=== PATIENT | female | born 1935 | race Caucasian/White ===

== ENCOUNTER → 2020-02-07 | Outpatient (CLI) | payer MEDICARE, BC ==
[~2020-02-07] MED LIST: ACCUPRIL40MGTAB; ALEVE 220MG220 MG PO; ASPIRIN E.C. 8181 MG PO; CALCIUM600 M2 PO; CELEXA10 MG PO; CENTRUM SILVER1 CTB; COLACE 100100 MG/CAP PO; COMPLETE SENIOR1 TA1 PO; FLONASEALLERGY NS; GLUCOPHAGE500 MG/TAB PO; MEDROL 4MG DOSPA4 MG PO; NORCO 325 MG-51 TAB PO; PRINIVIL40 MG PO; PROAIR HFA0.09 MG/AC IH; SYNTHROID0.125 MG/T PO; TOPROL XL 25MG25 MG PO
== END ==
LOC: ZCOL.LAB 19:00
DX: L02.416 Cutaneous abscess of left lower limb (principal)

== ENCOUNTER 2022-05-16 09:47 | Inpatient (IN) | payer MEDICARE, BC ==
[~2022-05-16] VITALS: Ht 149.9 cm; Wt 116.6 kg
[2022-05-16] VITALS (13 sets, daily range): BP systolic 99–130; BP diastolic 46–97; PULSE 98–130; TEMP 97.6–99.6
[2022-05-16 10:41] LABS: COLLECTION METHOD CATHETER
[2022-05-16 10:52] LABS: URINE APPEARANCE Clear (CLEAR/HAZY); URINE BLOOD TRACE-INTACT (NEGATIVE); URINE COLOR Yellow (YELLOW); URINE GLUCOSE Negative (NEGATIVE); URINE KETONE TRACE (NEGATIVE); URINE NITRATE Negative (NEGATIVE); URINE PROTEIN(semi-quant) 2+ (NEGATIVE); URINE UROBILINOGEN 0.2 E.U/dL (0.2-1.0)
[2022-05-16 10:53] LABS: SQUAMOUS EPITHELIAL 0-2 /hpf (0-10); URINE BACTERIA None Seen /hpf (NONE SEEN)
[2022-05-16 10:59] LABS: MEAN CELL VOLUME 84 fl (80.0-100.0); MEAN CORPUSCULAR HEMOGLOBIN 27 pg (27-31); MEAN CORPUSCULAR HGB CONC 33 g/dl (33.0-37.0); PLATELET COUNT 330 K/mm3 (130-400); REDCELL DISTRIBUTION WIDTH-CV 18.5 % (11.5-14.5)
[2022-05-16 11:01] LABS: RED BLOOD COUNT 5.88 M/mm3 (4.10-5.30)
[2022-05-16 11:02] LABS: HEMOGLOBIN 16.1 g/dl (12.5-16.0)
[2022-05-16 11:03] LABS: HEMATOCRIT 49.4 % (37.0-47.0)
[2022-05-16 11:20] LABS: BAND 4 % (0-10); BASOPHIL 1 % (0-2); LYMPHOCYTE 5 % (20.0-51.0); NEUTROPHILS 78 % (42.0-75.2)
[2022-05-16 11:21] LABS: PLATELET ESTIMATE NORMAL (NORMAL)
[2022-05-16 11:22] LABS: POLYCHROMASIA 1+
[2022-05-16 11:27] LABS: ALBUMIN 3.5 gm/dL (3.4-4.8); ANION GAP 14 mmol/L (7-16); BILIRUBIN,TOTAL 3.3 mg/dL (0.2-1.2); BLOOD UREA NITROGEN 16 mg/dL (10-20); CALCIUM 9.8 mg/dL (8.4-10.2); CARBON DIOXIDE 24 mmol/L (23-31); CHLORIDE 99 mmol/L (98-107); CREATININE, serum 0.97 mg/dL (0.57-1.11); GLUCOSE 93 mg/dL (70-99); SODIUM 137 mmol/L (136-145)
[2022-05-16 11:33] LABS: TOTAL PROTEIN 8.9 gm/dL (6.2-8.1)
[2022-05-16 11:34] LABS: ALANINE AMINOTRANSFERASE 66 U/L (0-55); AST,SGOT 189 U/L (5-34)
[2022-05-16 11:35] LABS: ALKALINE PHOSPHATASE 117 U/L (40-150)
[2022-05-16 11:38] LABS: CREATINE KINASE 1408 U/L (29-168)
[2022-05-16 11:41] LABS: TROPONIN-I 0.047 ng/mL (0.00-0.033)
[2022-05-16 12:13] LABS: TSH w REFLEX 1.028 uIU/mL (0.350-4.940)
[2022-05-16 12:43] LABS: BILIRUBIN,TOTAL 2.9 mg/dL (0.2-1.2); CALCIUM 9.2 mg/dL (8.4-10.2); CREATININE, serum 0.71 mg/dL (0.57-1.11); POTASSIUM 3.7 mmol/L (3.5-4.5); TOTAL PROTEIN 6.4 gm/dL (6.2-8.1)
[2022-05-16 12:52] LABS: TROPONIN-I 0.04 ng/mL (0.00-0.033)
--- NOTE | 2022-05-16 15:37 | NUR ---
Pt. to the floor from ER. Pt. is A&OX3, assessment complete. INT to rt. hand and rt. ac. Pt. denies pain at this time.
--- NOTE | 2022-05-16 16:00 | NUR ---
Pt. has several skin wounds to BLE. RLE- scaling, and weeping, mid calf down and including the rt. foot. redness and edema noted. Rt. heew with a 4 cm fissure, area is open and draining. Rt. 1st through 3rd toes with healing wounds. rt. bottom ball area also with a cracked area that is scabbed. Lt. warner with a [id number] scabbed area. top of lt. foot with open blister. lt. 2nd and 3rd toes with healing wounds. lt. heel with cracked area that is scabbed.
[2022-05-16] MEDS ORDERED: CYMBALTA 30MG30 MG PO (16:01)
--- NOTE | 2022-05-16 18:00 | NUR ---
Cardizem Gtt started at this time. per orders. see chart for vitals.
--- NOTE | 2022-05-16 20:55 | NUR ---
SHIFT REPORT FROM RUPA BRANCH. PATIENT IN BED ON ROOM ENTRY. ALERT BUT CONFUSED. WORD SALAD NOTED. HS MEDS PER EMAR. POTASSIUM PER PROTOCOL. PUREWICK IN PLACE BUT WAS LEAKING, LINEN CHANGE COMPLETED. DENIES PAIN AT THIS TIME. BLE CELLULITIS IS WEEPING AND SCABBY AND RED. INTERDRY TO PANIS EXCORIATION. DENIES ADDITIONAL NEEDS. CALL LIGHT IN REACH.
[2022-05-17] VITALS (7 sets, daily range): BP systolic 100–154; BP diastolic 76–134; PULSE 87–115; TEMP 97.4–99.1
--- NOTE | 2022-05-17 02:19 | NUR ---
PATIENT HAD MOMENT OF INCREASED CONFUSION AND WAS ATTEMPTING TO GET OUT OF BED. PATIENT STOOD AT BEDSIDE AND WAS REDIRECTED BACK TO BED AND SITTING. PATIENT HAS BEEN INCONTINENT, PUREWICK IN PLACE. IV TO R HAND WAS PULLED OUT AND RESTARTED ON FIRST ATTEMPT 20 G TO L WRIST. RLE HAS OPEN AREAS THAT ARE NOW BLEEDING, LEFT OPEN TO AIR.
[2022-05-17 06:47] LABS: HEMATOCRIT 43.6 % (37.0-47.0); MEAN CELL VOLUME 85 fl (80.0-100.0); MEAN CORPUSCULAR HEMOGLOBIN 27 pg (27-31); MEAN CORPUSCULAR HGB CONC 32 g/dl (33.0-37.0); MEAN PLATELET VOLUME 9.9 fl (7.4-10.4); PLATELET COUNT 280 K/mm3 (130-400); RED BLOOD COUNT 5.12 M/mm3 (4.10-5.30)
[2022-05-17 06:51] LABS: HEMOGLOBIN 13.9 g/dl (12.5-16.0)
[2022-05-17 07:03] LABS: ALBUMIN 2.8 gm/dL (3.4-4.8); CALCIUM 8.9 mg/dL (8.4-10.2); CREATININE, serum 0.8 mg/dL (0.57-1.11); MAGNESIUM 1.6 mg/dL (1.6-2.6); POTASSIUM 3.9 mmol/L (3.5-4.5)
[2022-05-17 07:49] LABS: ANISOCYTOSIS 1+; BAND 1 % (0-10); HYPOCHROMIA 2+; LYMPHOCYTE 16 % (20.0-51.0); NEUTROPHILS 73 % (42.0-75.2)
[2022-05-17 07:50] LABS: PLATELET ESTIMATE NORMAL (NORMAL); TOXIC GRANULATION PRESENT
--- NOTE | 2022-05-17 10:00 | NUR ---
Pt. in bed. PT here at this time. Assisted pt. to the chair with 2 assist, walker and gait belt. Ortho here also to evaluated BLE. RLE with crusty, weeping, red area that goes whole circumfrence of lower calf. Rt. 1st through 3rd toes with healing wounds, areas scabbed. Rt. heel with fissure that is open and draining. Lt. warner with [id number] scabbed area. LT. top of foot. blister open, lateral foot blister closed. lt. 1st through 3nd toes with heeling wounds. Lt. heel with heeling crack. Pt. denies pain to BLE. Dressings applied per Shannon. PA recommendations. Pt. yaa further needs.
--- NOTE | 2022-05-17 15:40 | NUR ---
SW completed intake with son Steve Andrews [phone] who lives in [place]. SW informed that the patient was a little confused. Patient lives alone in [facility], utilizes a walker and a cane. Is independent with ADL's, but son provides she could utilize assistance, no HH agency utilized at this time. PCP is Dr. Cole. Son states at this time patient does not have anyone specifically appointed as DPOA/HC. Son states that mother has most recently been able to hear very well and doesn't understand things. Son provides that he and patient will be discussing dc plan as he observes she would benefit from LTC. PT recommended IPR on this day. SW will continue to follow. DC plan: IPR vs SNF vs LTC
--- NOTE | 2022-05-17 16:38 | NUR ---
SW reviewed PT recommendation of IPR. SW called IPR staff to inform of referral. SW will continue to follow.
--- NOTE | 2022-05-17 21:47 | NUR ---
2030 PTS DRESSING TO RT LEG WITH DRAINAGE, RN CHANGED DRESSING AND REWRAPPED LEG, BETADINE PLACED ON SCABBING ON FIRST 3 TOES ON RIGHT FOOT. PT TOLERATED DRESSING CHANGE WELL NO NEW REQUESTS AT THIS TIME
--- NOTE | 2022-05-18 01:42 | NUR ---
Patient care, medication administration and nursing documentation occurred during a Daylight Savings Time Change.
[2022-05-18 03:28] VITALS: BP 134/39; PULSE 82; TEMP 97.4
--- NOTE | 2022-05-18 06:14 | NUR ---
PT HAD AN UNEVENTFUL NIGHT. PT WAS ABLE TO AMBULATE WITH X1 ASSISTANCE WITH THIS RN TO THE RESTROOM AT THE BEGINNING OF THE SHIFT. PT AMBULATED WELL BUT KEPT GETTING SIDE TRACKED WHILE TALKING TO TRANSFER DID TAKE A WHILE. RN BRUSHED PTS HAIR SHE WAS DEVELOPING MATTING AT THE BACK OF HER HEAD. PTS DRESSING CHANGED ON R LEG THE DRESSING WAS SATURATED. 0610 PT KATHY PAD CHANGED, PT WAS READJUSTED WITH LEGS ELEVATED, DENIES ANY COMPLAINTS OF PAIN WITH NO NEW REQUESTSS AT THIS TIME .
[2022-05-18 06:53] LABS: BASO # 0.1 K/mm3 (0.0-0.2); BASO % 0.8 % (0.0-2.0); EOS # 0.3 K/mm3 (0.0-0.7); EOS % 2.3 % (0.0-4.0); GRAN # 7.6 K/mm3 (1.4-6.5); GRAN % 68.6 % (42.2-75.2); HEMATOCRIT 43.9 % (37.0-47.0); LYMPH # 1.7 K/mm3 (1.2-3.4); LYMPH % 15.3 % (20.0-51.0); MEAN CELL VOLUME 86 fl (80.0-100.0); MEAN CORPUSCULAR HEMOGLOBIN 27 pg (27-31); MEAN CORPUSCULAR HGB CONC 32 g/dl (33.0-37.0); MEAN PLATELET VOLUME 10.1 fl (7.4-10.4); MONO # 1.4 K/mm3 (0.1-0.6); MONO % 12.4 % (1.7-9.3); PLATELET COUNT 229 K/mm3 (130-400); RED BLOOD COUNT 5.12 M/mm3 (4.10-5.30); REDCELL DISTRIBUTION WIDTH-CV 18.6 % (11.5-14.5)
[2022-05-18 07:11] LABS: ALBUMIN 2.6 gm/dL (3.4-4.8); CALCIUM 8.6 mg/dL (8.4-10.2); CREATININE, serum 0.71 mg/dL (0.57-1.11); MAGNESIUM 1.8 mg/dL (1.6-2.6); PHOSPHOROUS 2.1 mg/dL (2.3-4.7); POTASSIUM 3.9 mmol/L (3.5-4.5)
[2022-05-18 08:03] VITALS: BP 141/84; PULSE 86; TEMP 97.5
--- NOTE | 2022-05-18 10:00 | NUR ---
Pt. sitting up in chair. Pt. is A&OX3, assessment complete. INT to rt. ac and lt. hand patent. Pt. reports pain to rt. lower back and hip area at a 4. Pt. denies further needs.
[2022-05-18 12:15] VITALS: BP 129/65; PULSE 96; TEMP 97.9
--- NOTE | 2022-05-18 14:34 | NUR ---
SW spoke with son about DC plans with Dr. Fuchs in the room. Pt would like a referral to [facility] and with AL in the future there. KYRIE made DOPA-HC for the pt and son. Pt fully understood and agreed. KYRIE made copies for the pt and placed a copy in the chart. Son would like information on medicaid. KYRIE faxed a referral to [facility] via medical printer 2:38 pm. No other needs at this time.
[2022-05-18 16:09] VITALS: BP 144/53; PULSE 85; TEMP 97.4
[2022-05-18 20:03] VITALS: BP 150/91; PULSE 77; TEMP 98.3
[2022-05-18 23:38] VITALS: BP 154/91; PULSE 82; TEMP 98.3
--- NOTE | 2022-05-19 01:53 | NUR ---
0005 PTS DRESSING TO R LEG CHANGED DUE TO SATURATION. PT TOLERATED DRESSING CHANGE WELL. PT CURRENTLY RESTING IN BED NO NEW REQUETS AT THIS TIME
[2022-05-19 03:39] VITALS: BP 150/86; PULSE 94; TEMP 98.8
[2022-05-19 07:17] LABS: BASO # 0.1 K/mm3 (0.0-0.2); BASO % 0.8 % (0.0-2.0); EOS # 0.3 K/mm3 (0.0-0.7); EOS % 2.6 % (0.0-4.0); GRAN # 7.8 K/mm3 (1.4-6.5); LYMPH # 1.8 K/mm3 (1.2-3.4); LYMPH % 16.2 % (20.0-51.0); MEAN CELL VOLUME 88 fl (80.0-100.0); MEAN CORPUSCULAR HEMOGLOBIN 27 pg (27-31); MEAN CORPUSCULAR HGB CONC 31 g/dl (33.0-37.0); MEAN PLATELET VOLUME 10.2 fl (7.4-10.4); MONO # 1.2 K/mm3 (0.1-0.6); MONO % 10.8 % (1.7-9.3); PLATELET COUNT 276 K/mm3 (130-400); RED BLOOD COUNT 5.47 M/mm3 (4.10-5.30); REDCELL DISTRIBUTION WIDTH-CV 18.8 % (11.5-14.5)
[2022-05-19 07:51] LABS: ALBUMIN 2.8 gm/dL (3.4-4.8); CALCIUM 8.5 mg/dL (8.4-10.2); CREATININE, serum 0.71 mg/dL (0.57-1.11); MAGNESIUM 1.8 mg/dL (1.6-2.6); PHOSPHOROUS 2.8 mg/dL (2.3-4.7); POTASSIUM 4.3 mmol/L (3.5-4.5)
--- NOTE | 2022-05-19 07:56 | NUR ---
Received shift report from the night nurseAllie RN
[2022-05-19 08:08] VITALS: BP 110/54; PULSE 64; TEMP 98.6
--- NOTE | 2022-05-19 11:12 | NUR ---
Patient sitting up in a recliner next to bed. Patient alert and oriented. Noted drainage from bilateral foot. Kerlix roll dressing to right leg has some bloody drainage to the area. Dressing changed and applied vaseline gauze, telfa, 4x4 , kerlix roll and apply daron wrap to bilateral extremities. Patient tolerated the procedure well. Call jimenez place within reach.
[2022-05-19 12:11] VITALS: BP 148/82; PULSE 80; TEMP 97.8
--- NOTE | 2022-05-19 16:16 | NUR ---
Chief Analytics Officer spoke with Tina, [facility] Director who continues to follow referral, however advised patient may be better fit for SNF if accepted. Meliza at [facility] declined referral. SW met with patient to discuss other referrals. Patient does not want [facility] in [place] or [facility]. Patient agreeable to have referrals sent to [facility] and [facility] in [place]. SW contacted both facilities and gave referral. SW contacted patient's son, Steve and left message.
--- NOTE | 2022-05-19 16:17 | NUR ---
Patient off the unit for CT scan.
[2022-05-19 16:41] VITALS: BP 141/90; PULSE 86; TEMP 97.6
--- NOTE | 2022-05-19 18:55 | NUR ---
Patient sitting up in bed eating dinner. Patient denies pain at this time. Bilateral dressing dry and intact.
[2022-05-19 19:50] VITALS: BP 152/82; PULSE 81; TEMP 98.1
--- NOTE | 2022-05-19 22:44 | NUR ---
SHIFT REPORT FROM BRITNEY BRANCH. PATIENT IN BED ON ROOM ENTRY. DROWSY AND PARTIALLY ORIENTED. HS MEDS PER EMAR. DENIES PAIN WHEN ASKED. BLE DRESSED AND MILAGROS WRAPPED. PUREWICK IN PLACE AND CLEAR YELLOW URINE OUT. DENIES ADDITIONAL NEEDS. CALL LIGHT IN REACH.
[2022-05-19 23:31] VITALS: BP 152/83; PULSE 82; TEMP 97.8
[2022-05-20 03:52] VITALS: BP 172/104; PULSE 80; TEMP 97.8
[2022-05-20 06:57] LABS: BASO # 0.1 K/mm3 (0.0-0.2); BASO % 1.1 % (0.0-2.0); EOS # 0.2 K/mm3 (0.0-0.7); EOS % 2.1 % (0.0-4.0); GRAN % 67.3 % (42.2-75.2); HEMATOCRIT 51.5 % (37.0-47.0); HEMOGLOBIN 16.6 g/dl (12.5-16.0); LYMPH # 1.7 K/mm3 (1.2-3.4); LYMPH % 16.6 % (20.0-51.0); MEAN CELL VOLUME 86 fl (80.0-100.0); MEAN CORPUSCULAR HEMOGLOBIN 28 pg (27-31); MEAN CORPUSCULAR HGB CONC 32 g/dl (33.0-37.0); MEAN PLATELET VOLUME 10.4 fl (7.4-10.4); MONO # 1.2 K/mm3 (0.1-0.6); MONO % 11.8 % (1.7-9.3); PLATELET COUNT 329 K/mm3 (130-400); REDCELL DISTRIBUTION WIDTH-CV 19.7 % (11.5-14.5)
--- NOTE | 2022-05-20 07:05 | NUR ---
Shift report received from the night nurseArcelia RN
[2022-05-20 08:09] LABS: ALBUMIN 3.1 gm/dL (3.4-4.8); CREATININE, serum 0.72 mg/dL (0.57-1.11); MAGNESIUM 1.9 mg/dL (1.6-2.6); PHOSPHOROUS 2.8 mg/dL (2.3-4.7); POTASSIUM 5.1 mmol/L (3.5-4.5)
[2022-05-20 08:10] VITALS: BP 159/93; PULSE 90; TEMP 97.4
--- NOTE | 2022-05-20 10:32 | NUR ---
Patient resting in a recliner alert and oriented. Wound on right heel, cracked , great oe scabbed and 2nd and 3rd toe scabbed. Noted drainage on dressing on bilateral lower extremity. Patient denies pain at this time. Tele monitor intact. Call jimenez within reach.
[2022-05-20 11:58] VITALS: BP 137/98; PULSE 87; TEMP 97.7
[2022-05-20] MEDS ORDERED: ROCEPHIN 2GM VIAL21 IJ (14:28)
[2022-05-20] MEDS ORDERED: DOXYCYCLINE 10100 MG PO (14:29)
[2022-05-20] MEDS ORDERED: LOPRESSOR 550 MG/TAB PO (14:30)
--- NOTE | 2022-05-20 15:03 | NUR ---
Hot Bread Baker spoke with Hospitalist who gave final antibiotic recs. KYRIE provided recs to Osmel at [facility] who advised they can accept. KYRIE met with patient and son, Steve who are agreeable with discharge to [facility]. SW was notified by Osmel later in the afternoon that they can accept today. SW met with patient and reviewed IM form and patient advised she mostly understood, however would like SW to review it with her son, Steve who went to run some errands. KYRIE called Steve and reviewed IM form. Steve verbalized understanding and gave SW permission to sign on his behalf. KYRIE placed form in chart and provided copy to patient. KYRIE faxed discharge orders to Osmel at [facility]. Transport time set for 1530 and provided to patient's son, Steve. KYRIE consulted with [employer] Counselor who met with patient and Steve prior to her discharge. Discharge Plan: [facility] SNF
--- NOTE | 2022-05-20 16:37 | NUR ---
Patient discharged to [facility]. INT d/c all belongings and paperwrok given to family member to the facility. Report given to nurse Gayle at the facility.
== END 2022-05-20 16:00 | DRG 872 ==
LOC: COL.ER 09:47 → SURG 11:49
PROVIDERS: Emergency Medicine; ADMIT Internal Medicine
DX: A41.9 Sepsis, unspecified organism (principal); I48.20 Chronic atrial fibrillation, unspecified; L03.116 Cellulitis of left lower limb; L03.115 Cellulitis of right lower limb; L97.519 Non-pressure chronic ulcer of other part of right foot with unspecified severity; S90.851A Superficial foreign body, right foot, initial encounter; E87.5 Hyperkalemia; I25.10 Atherosclerotic heart disease of native coronary artery without angina pectoris; I35.0 Nonrheumatic aortic (valve) stenosis; E03.9 Hypothyroidism, unspecified; F32.A Depression, unspecified; M79.7 Fibromyalgia; I10 Essential (primary) hypertension; S62.617A Displaced fracture of proximal phalanx of left little finger, initial encounter for closed fracture; E11.9 Type 2 diabetes mellitus without complications; G89.29 Other chronic pain; M54.9 Dorsalgia, unspecified; W18.39XA Other fall on same level, initial encounter; Y93.89 Activity, other specified; Z79.890 Hormone replacement therapy; Z95.1 Presence of aortocoronary bypass graft; Y92.89 Other specified places as the place of occurrence of the external cause; Z98.51 Tubal ligation status; Z90.49 Acquired absence of other specified parts of digestive tract; Z79.82 Long term (current) use of aspirin; Z23 Encounter for immunization
CPT/HCPCS: G0378; J0696; J1644; J3370; J7050; Q9967

== ENCOUNTER 2022-05-29 16:02 | Emergency (ER) | payer MEDICARE, BC ==
[~2022-05-29] VITALS: Ht 162.6 cm; Wt 102.3 kg
[~2022-05-29 16:02] MED LIST changes: +CYMBALTA 30MG30 MG PO; +DOXYCYCLINE 10100 MG PO; +LOPRESSOR 550 MG/TAB PO; +ROCEPHIN 2GM VIAL21 IJ
[2022-05-29 16:23] VITALS: TEMP 97.9
[2022-05-29 18:15] LABS: COLLECTION METHOD CATHETER
[2022-05-29 18:19] LABS: BASO # 0.1 K/mm3 (0.0-0.2); BASO % 0.8 % (0.0-2.0); EOS # 0.3 K/mm3 (0.0-0.7); EOS % 3.2 % (0.0-4.0); GRAN # 4.1 K/mm3 (1.4-6.5); GRAN % 52.9 % (42.2-75.2); HEMATOCRIT 52.7 % (37.0-47.0); HEMOGLOBIN 17.3 g/dl (12.5-16.0); LYMPH # 2.1 K/mm3 (1.2-3.4); LYMPH % 27.6 % (20.0-51.0); MEAN CELL VOLUME 86 fl (80.0-100.0); MEAN CORPUSCULAR HEMOGLOBIN 28 pg (27-31); MEAN CORPUSCULAR HGB CONC 33 g/dl (33.0-37.0); MEAN PLATELET VOLUME 10.3 fl (7.4-10.4); MONO # 1.1 K/mm3 (0.1-0.6); MONO % 14.6 % (1.7-9.3); PLATELET COUNT 216 K/mm3 (130-400); RED BLOOD COUNT 6.14 M/mm3 (4.10-5.30); REDCELL DISTRIBUTION WIDTH-CV 20.6 % (11.5-14.5)
[2022-05-29 18:20] LABS: URINE APPEARANCE Clear (CLEAR/HAZY); URINE COLOR Yellow (YELLOW)
[2022-05-29 18:21] LABS: URINE BLOOD Negative (NEGATIVE); URINE GLUCOSE Negative (NEGATIVE); URINE KETONE Negative (NEGATIVE); URINE NITRATE Negative (NEGATIVE); URINE PROTEIN(semi-quant) 2+ (NEGATIVE)
[2022-05-29 18:22] LABS: MUCOUS Present (NOT PRESENT); SQUAMOUS EPITHELIAL 0-2 /hpf (0-10); URINE BACTERIA None Seen /hpf (NONE SEEN); URINE RBC 0-2 /hpf (0-2)
[2022-05-29 18:38] LABS: ALBUMIN 2.9 gm/dL (3.4-4.8); BILIRUBIN,TOTAL 1.6 mg/dL (0.2-1.2); C-REACTIVE PROTEIN 2.44 mg/dL (0.00-0.50); CALCIUM 8.8 mg/dL (8.4-10.2); CREATININE, serum 0.72 mg/dL (0.57-1.11); TOTAL PROTEIN 6.9 gm/dL (6.2-8.1)
[2022-05-29 20:50] VITALS: BP 170/98; PULSE 92
== END 2022-05-29 20:50 | disposition home or self-care (01) ==
LOC: COL.ER 16:02
PROVIDERS: Emergency Medicine
DX: E86.0 Dehydration (principal); B97.89 Other viral agents as the cause of diseases classified elsewhere; E80.7 Disorder of bilirubin metabolism, unspecified; L03.90 Cellulitis, unspecified
CPT/HCPCS: J7040